=== PATIENT | female | born 2000 | race Two or more races ===

== ENCOUNTER 2024-10-24 09:57 | Day surgery (SDC) | payer OTHER, SELFPAY ==
[2024-10-24] VITALS (17 sets, daily range): BP systolic 105–135; BP diastolic 61–92; PULSE 75–101; RESP 17–98; TEMP 36.2–37.7; O2SAT 92–100; BMI 21.9
--- NOTE | 2024-10-24 10:24 | PD.EDABDPN ---
ED Abdominal Pain RME/HPI General Chief Complaint: Nausea/Vomiting/Diarrhea Stated complaint: ABDOMINAL PAIN Time seen by provider: 10/24/24 10:05 Arrival date/time: 10/24/24 09:57 RME / HPI RME / HPI narrative: 24 year old female with no stated medical history presents to the ED BIBA for evaluation of abdominal pain beginning 1 week ago and worsening today. States pain is located to the right side of abdomen mostly in the right lower quadrant, described as aching in sensation, rating as severe. Accompanied by nausea. Denies fevers, chills, sweats, chest pain, cough, shortness of breath, diarrhea, constipation, or urinary symptoms. Denies any history of similar abdominal pain or abdominal surgeries. Related Data Allergies Allergy/AdvReac Type Severity Reaction Status Date / Time No Known Allergies Allergy Verified 10/24/24 10:23 Review of Systems Review of Systems Narrative Review of Systems: Constitutional: DENIES; Fevers Eyes: DENIES; Loss of vision Head/Ear/Nose: DENIES; Loss of hearing Throat: DENIES; Dysphagia Cardiovascular: DENIES; Chest pain, dyspnea or syncope Respiratory: DENIES; Shortness of breath Gastrointestinal: SEE HPI +abd pain, nausea. DENIES; Rectal bleeding or melena. Genitourinary: DENIES; Dysuria (painful or difficult urination) Musculoskeletal: DENIES; Arthralgia (pain in a joint),; Skin: DENIES; Rash Neurological: DENIES; Loss of function or movement Psychiatric: DENIES; recent major life stressor, emotional problem, illicit drug use or abuse Endocrinology: DENIES; Weight change Hematologic/Lymphatic: DENIES; Abnormal bruising Allergic/Immunologic: DENIES; Urticaria (hives) Past Medical History Past Medical History CARDIAC: Negative Cardiac Disorders or Congestive Heart Failure RESPIRATORY: Negative Chronic Obstructive Pulmonary Disease (COPD) or Asthma GENITOURINARY: Negative Renal Disease ENDOCRINE: Negative Diabetes Mellitus Type 1 or Diabetes Mellitus Type 2 HEMATOLOGIC: Negative Sickle Cell Disease Social History SMOKING STATUS: Never smoker ED Exam Narrative Physical exam: Physical Exam: General: The vital signs were reviewed. The patient is non-toxic, in no apparent distress and appears healthy with a patent airway, no respiratory distress and has no apparent circulatory problems. Head & Scalp: Normocephalic, atraumatic. Face: Appears normal and is without lesions, deformity. Ears: Left external pinna appears normal. Right external pinna appears normal. Eyes: The sclera is anicteric. No obvious photophobia. The Left and Right Orbit/Lid/Conjunctiva appears normal without swelling, discoloration or injection. Nose: The nose is without deformity, discharge or tenderness; Throat: Appears normal. The mucous membranes are pink and moist without exudates, redness or mass seen. The tongue appears normal. Neck: The neck is supple and no apparent mass or adenopathy. Chest: The chest wall is normal in size and symmetry and has no chest wall tenderness or crepitus. The patient displays normal ventilator effort without retractions, accessory muscle use and has adequate air movement bilaterally with no wheezes and no rales. Cardiovascular: Regular rate and rhythm; No murmurs, rubs, or gallops; Gastrointestinal: The abdomen appears normal. No obvious hernias or mass. The abdomen very tender on minimal palpation of the abdomen but when you push on the right lower quadrant versus the other quadrants you get the maximum on a pain. Is soft and benign, non-distended, with no pain, no guarding and no rebound tenderness. Bowel sounds are present and normal sounding. No CVA tenderness. Genitourinary: Back/Spine: Normal inspection Extremities/Musculoskeletal/lymphatic: The bilateral upper and lower extremities are warm. There is no evidence of arterial insufficiency. There is no evidence of venous insufficiency/edema. The patient spontaneously moves bilateral upper and lower extremities with no pain and no limitation of movement. There is no apparent, injury or trauma. Skin: The skin is warm, dry and intact. No rashes. No petechia. No purpura. No abnormal bruising. The color is appropriate with no cyanosis. Mental status/Psychiatric: Mental status is appropriate for age. The patient has no apparent delusions, visual hallucinations, no apparent audible hallucinations. The patient has no apparent suicidal thoughts/ideation and no apparent homicidal thoughts/ideation. Neurological: The patient is awake, alert, interactive, cordial, cooperative and is oriented to name and situation. The patient follows commands and answers historical question with no impairment. There is no visual disturbance apparent. The pupils are equal and reactive bilaterally with normal eye movements and no diplopia The bilateral upper and lower extremities have normal strength, normal range of motion and normal functioning. The gait, station and balance not tested due to acuity Course Quality Measures none Orders Category Date Time Status CT Screening NOW Care 10/24/24 10:23 Active NPO NOW Care 10/24/24 10:22 Active Diet NPO (NOW) Diet 10/24/24 10:[address] abdomen pelvis w con Stat Exams 10/24/24 10:23 Completed Blood Culture (Lab) Stat Lab 10/24/24 10:52 Received CBC Stat Lab 10/24/24 10:50 Completed Comprehensive Metabolic Panel Stat Lab 10/24/24 10:50 Completed HCG,Qualitative Serum Stat Lab 10/24/24 10:50 Completed Lactate (Lactic Acid) Stat Lab 10/24/24 10:50 Completed Lipase Stat Lab 10/24/24 10:50 Completed Troponin I Stat Lab 10/24/24 10:50 Completed DiphenhydrAMINE INJ [Benadryl Inj] Med 10/24/24 12:44 Discontinued 25 mg IVP X1 ONE HYDROmorphone INJ [Dilaudid Inj] Med 10/24/24 11:53 Discontinued 0.5 mg IVP X1 ONE Morphine Inj Med 10/24/24 10:19 Discontinued 4 mg IVP X1 ONE Ondansetron Inj [Zofran Inj] Med 10/24/24 10:19 Discontinued 4 mg IV X1 ONE Sodium Chloride 0.9% 1000 ml [Ns] 1,000 ml Med 10/24/24 10:30 Active IV 200 mls/hr Vital Signs Vital signs: Vital Signs Temperature 98.9 F 10/24/24 10:12 Pulse Rate 95 10/24/24 10:12 Respiratory Rate 20 10/24/24 10:12 Blood Pressure 115/81 10/24/24 10:12 Pulse Oximetry (%) 100 10/24/24 10:12 Oxygen Delivery Method Room Air 10/24/24 10:12 Pulse ox is 100% on room air which is adequate. Abdominal Pain MDM MDM Narrative MDM Narrative:: Patient comes in with severe abdominal pain white count is 12.0 hemoglobin 14.5 CMP chemistry panel is entirely normal. test was negative. UA is still uncollected at 1239 hrs. Lactic acid is normal. Patient went to the scanner waiting for results and ultrasound is still pending. CT scan patient came back and has obvious acute appendicitis per the report adnexa appears normal patient's not . UA is still pending. Surgeon has been called and will evaluate. Dr. Wilkins was contacted he is going to come see the patient we will give her 1 dose of Zosyn. And will admit for acute appendicitis Patient data External records reviewed:: [facility] previous records (Per EMR review, no previous visits for review. ) and EMS form Clinical information provided by:: patient and EMS Social determinants that could affect healthcare access:: none Patient has the following chronic illnesses:: None How is presenting disease/condition affected by chronic disease/condition?: no chronic disease Evaluation data The following diagnostics were reviewed and interpreted by me:: lab results and radiology exam(s) Lab and/or radiology exams considered but not ordered:: None Interpretation Summary: Ordering Physician: Chino Laura MD Date of Service: 10/24/24 Procedure(s): CT abdomen pelvis w con Accession Number(s): [id number] cc: Chino Laura MD; Kevin Cherry MD; NO PRIMARY/FAMILY,PHYSICIAN~ Examination: CT abdomen with intravenous contrast CT pelvis with intravenous contrast 2-D coronal reconstructions 2-D sagittal reconstructions Date and time of exam:October 16, 2024 1233 hrs. Indications: Right lower abdominal pain today. CTDI: vol (mGy) 5.04 DLP: (mGycm) 253 Technique: Multiple axial sections of the abdomen and pelvis have been obtained. 64 slice high-resolution scanner used. 3 mm axial sections have been obtained, post intravenous injection 60 cc [id number] 2-D sagittal, coronal reconstructions obtained. Low dose protocols were performed. One or more of the following dose reduction techniques were used; automated exposure control, adjustment of the mA and/or KV according to patient size, use of iterative reconstruction technique. Findings: No focal liver or splenic lesions No gallstones No pancreatic or adrenal mass. No renal or ureteral calculi, no hydronephrosis Aorta normal size Fluid-filled inflamed enlarged appendix medial to the cecum, axial images 140 through 164 No pelvic abscess Contracted urinary bladder Impression: Acute appendicitis No pelvic abscess Dictated By: Kevin Cherry MD Signed By: <Electronically signed by Kevin Cherry MD in OV> 10/24/24 1302 Medications / Prescriptions Medications or Prescriptions considered but not ordered:: None Medication administrations:: Medication Administration History Sodium Chloride (Ns) 1,000 mls @ 200 mls/hr IV .Q5H GISELE Stop: 11/23/24 10:29 Last Admin: 10/24/24 10:30 Dose: 200 mls/hr Documented By: FLORESITA Discontinued Medications Diphenhydramine HCl (Diphenhydramine Inj 50 Mg/Ml Vial) 25 mg IVP X1 ONE Stop: 10/24/24 12:45 Last Admin: 10/24/24 12:46 Dose: 25 mg Documented By: FLORESITA Hydromorphone HCl (Hydromorphone Inj 2 Mg/Ml Vial) 0.5 mg IVP X1 ONE Stop: 10/24/24 11:54 Last Admin: 10/24/24 12:05 Dose: 0.5 mg Documented By: FLORESITA Morphine Sulfate (Morphine Sulf Inj 10 Mg/Ml Vial) 4 mg IVP X1 ONE Stop: 10/24/24 10:20 Last Admin: 10/24/24 10:46 Dose: 4 mg Documented By: FLORESITA Ondansetron HCl (Ondansetron Inj 2 Mg/Ml Inj 2 Ml) 4 mg IV X1 ONE; Protocol Stop: 10/24/24 10:20 Last Admin: 10/24/24 10:47 Dose: 4 mg Documented By: FLORESITA See above Consultations Consultation(s) initiated? (list below): Yes Consultation #1 (Physician, Specialty, Details): I spoke with surgeon Dr. Wilkins. Discussed patients PMHx, HPI, ED course, exam findings, labs, and radiology results. Time: 13:20 Diagnosis Differential diagnosis abdominal pain: abdominal pain, acute appendicitis, calculus of kidney, endometriosis and gastroenteritis Most likely diagnosis given after review of the tests above:: Acute appendicitis Admission Indicated Admission indicated?: indicated Admission Request Was there a request for admission?: Yes Admission Attestation Admission request attestation: Discussed case with [] from Hospitalist service regarding admission. Discussed patients ED course, exam findings, labs, and radiology results. The Hospitalist [agrees,declines] to accept the patient for admission. Disposition Plan Disposition Plan: Admit Discharge Plan Plan Patient Disposition: Admit Acute Care w/in Hospital Prescriptions/Referrals Referrals: No Primary/Family,Physician [Primary Care Provider] - In 1 week Problem List Clinical Impression: Right lower quadrant abdominal pain, Acute appendicitis Patient/Caregiver Discharge Instructions Print Language: Mosotho Stand Alone Forms: Jade Award Info., Patient Portal Info Letter
[2024-10-24] MEDS: SODIUM CHLORIDE 0.9% 1000 ML 1,000 ML 200 ML IV (10:30)
[2024-10-24] MEDS: MORPHINE SULF INJ 10 MG/ML VIAL 4 MG IVP (10:46)
[2024-10-24] MEDS: ONDANSETRON INJ 2 MG/ML INJ 2 ML 4 MG IV (10:47)
[2024-10-24 11:08] LABS: Lactate (Lactic Acid) 0.8 mMol/L (0.4-2.0)
[2024-10-24 11:14] LABS: Basophils % (Auto) 0 % (0-2.5); Eosinophils # (Auto) 0.1 Thou/mm3 (0.0-0.5); Eosinophils % (Auto) 1 % (0-10); Hematocrit 41.7 % (36.0-46.0); Hemoglobin 14.5 g/dL (12.0-16.0); Immature Granulocytes % (Auto) 0 % (0-0); Immature Granulocytes Auto 0.03 Thou/mm3 (0.00-0.00); Lymphocytes # (Auto) 1.7 Thou/mm3 (1.0-4.8); Lymphocytes % (Auto) 14 % (10-50); Mean Corpuscular HGB Conc 34.8 g/dl (31.0-37.0); Mean Corpuscular Hemoglobin 29.9 pg (25.0-35.0); Mean Corpuscular Volume 86 fL (80-100); Monocytes # (Auto) 0.6 Thou/mm3 (0.0-0.8); Monocytes % (Auto) 5 % (0-12); Neutrophils # (Auto) 9.6 Thou/mm3 (1.8-7.7); Neutrophils % (Auto) 80 % (37-80); Nucleated Red Blood Cell % 0 /100 WBC (0); Platelet Count 304 Thou/mm3 (140-440); RDW Standard Deviation 34.7 fL (36.4-46.3); Red Blood Count 4.85 Miln/mm3 (4.00-5.20)
[2024-10-24 11:29] LABS: HCG,Qualitative Serum Negative
[2024-10-24 11:34] LABS: Alanine Aminotransferase 13 U/L (10-49); Albumin/Globulin Ratio 1.6 (1.2-2.2); Alkaline Phosphatase 80 U/L (46-116); Anion Gap 7 (7-16); Aspartate Amino Transferase 20 U/L (0-34); BUN/Creatinine Ratio 13 Ratio (12-20); Bilirubin,Total 0.5 mg/dL (0.3-1.2); Blood Urea Nitrogen 9 mg/dL (9-23); Calcium 9.5 mg/dL (8.3-10.6); Calcium (Corrected) 9.5 mg/dL (8.5-10.1); Carbon Dioxide 27.3 mMol/L (20.0-31.0); Chloride 105 mMol/L (98-107); Creatinine (Component) 0.7 mg/dL (0.6-1.3); Estimated Creatinine Clearance 88.2 mL/min (>60); Globulin 3.2 gm/dL (2.3-3.5); Glucose 93 mg/dL (74-106); Lipase 42 U/L (12-53); Osmolality,Calculated 276 (275-295); Potassium 3.7 mMol/L (3.4-5.1); Sodium 139 mMol/L (136-145); Total Protein 8.2 gm/dL (5.7-8.2); Troponin I < 0.002 ng/mL (0.0-0.045); eGFR > 60 See Note
--- NOTE | 2024-10-24 11:51 | PC.NURSE ---
PATIENT STATES PAIN 10/10. INFORMED ER PROVIDER AND RECEIVED VERBAL ORDER FOR 0.5MG HYDROMORPHONE IV.
[2024-10-24] MEDS: HYDROmorphone INJ 2 MG/ML VIAL 0.5 MG IVP ×3 (12:05→16:37)
[2024-10-24] MEDS: DiphenhydrAMINE INJ 50 MG/ML VIAL 25 MG IVP (12:46)
--- NOTE | 2024-10-24 12:49 | PC.NURSE ---
Patient face and neck itch after contrast injection. ER provider notified and order for 25mg diphenhydramine IV given.
--- NOTE | 2024-10-24 14:04 | ESHP_ITS ---
[facility] Date of Admission 10/24/2024 Chief Complaint Chief Complaint: Patient is admitted with the complaints of acute appendicitis HPI History of present illness revealed that the patient was in his usual health and in the past week has had some vague abdominal pain intermittently. But last night the pain was severe and she was nauseated. She could not sleep. The pain started in the epigastric region and then moved to the right lower quadrant. Patient did not have any vomiting. She had a normal bowel movement couple of days ago but this is not having any diarrhea. Her past medical history is essentially unremarkable and she has never been admitted to the hospital.. 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 Past Medical History Past Medical History CARDIAC: Negative Cardiac Disorders or Congestive Heart Failure RESPIRATORY: Negative Chronic Obstructive Pulmonary Disease (COPD) or Asthma GENITOURINARY: Negative Renal Disease ENDOCRINE: Negative Diabetes Mellitus Type 1 or Diabetes Mellitus Type 2 HEMATOLOGIC: Negative Sickle Cell Disease Social History SMOKING STATUS: Never smoker Meds Home Medications and Allergies Allergies Allergy/AdvReac Type Severity Reaction Status Date / Time No Known Allergies Allergy Verified 10/24/24 10:23 Exam Vital Signs Temp Pulse Resp BP Pulse Ox O2 Del Method 99.5 F 98 20 123/87 H 100 Room Air 10/24/24 13:54 10/24/24 13:54 10/24/24 13:54 10/24/24 13:54 10/24/24 13:54 10/24/24 13:54 Narrative Exam Physical examination revealed a thin built female who is 5 feet tall weighing 112 pounds with BMI of 21.9. Her vital signs are normal other than tachycardia with pulse rate of 98 she did have a low-grade fever of 99.5 Routine Respiratory Exam Comments: Good breath sounds on both sides Routine Cardiovascular Exam Comments: Sinus tachycardia Routine Abdominal Exam Comments: Abdomen revealed severe tenderness that is localized in the suprapubic region.. She had a diffuse tenderness but more so in the suprapubic region and some in the right lower quadrant Routine Rectal Exam Comments: Deferred Routine Exam Comments: For Routine Extremities Exam Comments: Normal limits Results Results: Laboratory Laboratory Narrative: Patient's laboratory workup revealed a WBC of 12,000 with a shift to the left Results: Imaging Imaging narrative: CT scan of the abdomen showed acute appendicitis without any evidence of perforation or abscess Assessment & Plan Additional Assessment Additional comments: Impression: Acute appendicitis Plan Plan: I advised the patient to undergo laparoscopic or open appendectomy. The procedure was explained to her in detail including the potential complications due to the bowel bleeding and need for open surgery etc. were discussed with the patient. She is agreeable. Patient has been started on Zosyn and she will be taken to the operating room as soon as 1 is available Quality Measures Quality Measures none
[2024-10-24] MEDS: PIPER/TAZO INJ 3.375 GM in SODIUM CHLORIDE 0.9% (Popper) 50 ML IV ×2 (14:10→21:55)
--- NOTE | 2024-10-24 14:12 | PC.NURSE ---
Patient requested pain medication. Received verbal order from Dr. Laura for 0.5 mg Hydromorphone IV.
--- NOTE | 2024-10-24 15:52 | PC.NURSE ---
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
[2024-10-24] MEDS: SODIUM CHLORIDE 0.9% 1000 ML 1,000 ML 100 ML IV (16:38)
--- NOTE | 2024-10-24 17:33 | PC.NURSE ---
report received over phone from Nurse Fuller from ER. Darwin Fuller Pt. is already headed to the surgery. We will wait for pt.to back on the floor after surgery and start the care.
--- NOTE | 2024-10-24 17:34 | PC.NURSE ---
Report given to Dotty MCNEILL at Med Surg
--- NOTE | 2024-10-24 18:53 | PD.SUROPNT ---
Date of Procedure 10/24/24 Pre Op Diagnosis Acute appendicitis Post Op Diagnosis Same Procedure Laparoscopic appendectomy Findings Patient was found to have inflamed appendix going towards the back of the cecum Procedure Description After the patient was placed in supine position and anesthesia was administered with endotracheal intubation. Abdomen was prepped with ChloraPrep solution and draped in a sterile manner. A timeout was performed and a small incision was made just above the umbilicus. Fascia was cleaned and Veress needle was inserted to obtain a pneumoperitoneum up to 15 mmHg. Then I introduced a 12 mm trocar at the umbilicus with a 10 mm camera. Patient was kept in Trendelenburg position with the left lateral tilt. Intra-abdominal organs were visualized and this showed omentum covering the right lower quadrant. A 5 mm trocar was inserted in the right lower quadrant under direct vision and using a laparoscopic José I move the omentum and identified the appendix. Appendix was inflamed in its entire length and was located medial to the cecum. Another 5 mm trocar was inserted in the left lower quadrant under direct vision and using Harmonic hugo I dissected the mesoappendix cauterizing the vessels. When the base of the appendix was reached this was stapled using an Endo cutter 35 power chhaya. Then the appendix was retrieved through the Endopouch through the umbilical port. Patient was found to have a small bleeding on the surface of the stomach which was treated with Surgicel powder and I made sure that there is no bleeding or perforation. Then after irrigating and cleaning the pelvis and the right lower quadrant all the trocars were pulled out and the pneumoperitoneum was let out. Fascia was closed with interrupted 0 Vicryl and then I injected half percent Marcaine with epinephrine for analgesia. Skin was then closed with interrupted 4-0 nylon stitches and a Tegaderm dressing was applied. Patient tolerated the procedure well and returned to recovery room in stable condition. Anesthesia GETA Pathology / specimen Other (Inflamed appendix) Estimated Blood Loss 20 Surgeon Elio De Jesus MD Surgical Staff Operation Date: 10/24/24 17:00 Case Staff Anesthesiologist: Vinay Stewart RN First Assistant: Emperatriz Sage
--- NOTE | 2024-10-24 18:56 | SUR.PHASEI ---
Arrived to recovery [facility] via [facility]. Resport received from Terrence MCNEILL and Dr. Stewart. Resting with eyes closed, oral airway in place. No s/o distress or discomfort. x3 small dressings to lap sites C/D/I.
--- NOTE | 2024-10-24 19:10 | SUR.PHASEI ---
Oral airway removed, eyes open. No s/o distress or discomfort. Responding appropriately.
--- NOTE | 2024-10-24 19:30 | SUR.PHASEI ---
C/O abd. pain and feeling anxious. States she wants her mom and wants to leave the hospital. States she doesn't know why she's here and that she didn't agree to surgery. Explained to her that anesthesia may be affecting her memory. Mom brought to bedside. Explained to her why she had surgery and that once anesthesia wears off she will remember more details.
--- NOTE | 2024-10-24 19:32 | SUR.PHASEI ---
Dr. Stewart at bedside. Order for Dilauded received. States we can start pain control with Ofirmev and Fentanyl and may proceed with Dilauded PRN after that.
[2024-10-24] MEDS: ACETAMINOPHEN IVPB 1,000 MG/100 ML VIAL 250 MG IV (19:38)
[2024-10-24] MEDS: fentaNYL CIT INJ 50 mCg/ML AMP 2ML 25 MCG IV (19:39)
[2024-10-24] MEDS: HYDROmorphone INJ 2 MG/ML VIAL 0.5 MG IV (19:57)
[2024-10-24] MEDS: MORPHINE SULF INJ 10 MG/ML VIAL 3 MG IVP (20:52)
[2024-10-25] VITALS (9 sets, daily range): BP systolic 88–110; BP diastolic 51–68; PULSE 68–93; RESP 15–21; TEMP 36–36.5; O2SAT 96–99
[2024-10-25] MEDS: ACETAMINOPHEN IVPB 1,000 MG/100 ML VIAL 250 MG IV ×2 (00:23→05:14)
[2024-10-25] MEDS: SODIUM CHLORIDE 0.9% 1000 ML 1,000 ML 100 ML IV (00:23)
[2024-10-25] MEDS: MORPHINE SULF INJ 10 MG/ML VIAL 3 MG IVP ×2 (01:41→16:22)
[2024-10-25] MEDS: PIPER/TAZO INJ 3.375 GM in SODIUM CHLORIDE 0.9% (Popper) 50 ML IV ×2 (05:05→13:43)
[2024-10-25 05:20] LABS: Basophils % (Auto) 0 % (0-2.5); Eosinophils % (Auto) 0 % (0-10); Hematocrit 32.4 % (36.0-46.0); Hemoglobin 11.1 g/dL (12.0-16.0); Immature Granulocytes % (Auto) 0 % (0-0); Immature Granulocytes Auto 0.05 Thou/mm3 (0.00-0.00); Lymphocytes # (Auto) 0.7 Thou/mm3 (1.0-4.8); Lymphocytes % (Auto) 5 % (10-50); Mean Corpuscular HGB Conc 34.3 g/dl (31.0-37.0); Mean Corpuscular Hemoglobin 29.3 pg (25.0-35.0); Mean Corpuscular Volume 86 fL (80-100); Monocytes # (Auto) 0.7 Thou/mm3 (0.0-0.8); Monocytes % (Auto) 5 % (0-12); Neutrophils # (Auto) 14.9 Thou/mm3 (1.8-7.7); Neutrophils % (Auto) 91 % (37-80); Nucleated Red Blood Cell % 0 /100 WBC (0); Platelet Count 231 Thou/mm3 (140-440); RDW Standard Deviation 35.2 fL (36.4-46.3); Red Blood Count 3.79 Miln/mm3 (4.00-5.20); White Blood Count 16.4 Thou/mm3 (3.6-11.0)
--- NOTE | 2024-10-25 07:35 | ESPR_ITS ---
Documentation for date of: 10/25/24 Subjective Subjective Brief History: History of present illness revealed that the patient was in his usual health and in the past week has had some vague abdominal pain intermittently. But last night the pain was severe and she was nauseated. She could not sleep. The pain started in the epigastric region and then moved to the right lower quadrant. Patient did not have any vomiting. She had a normal bowel movement couple of days ago but this is not having any diarrhea. Her past medical history is essentially unremarkable and she has never been admitted to the hospital.. 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 She is passing flatus Exam Vital Signs Temp Pulse Resp BP Pulse Ox O2 Del Method O2 Flow Rate 97.1 F 72 21 H 110/68 98 Nasal Cannula 2 10/25/24 04:00 10/25/24 07:23 10/25/24 07:23 10/25/24 05:00 10/25/24 07:23 10/25/24 04:00 10/25/24 07:23 Her vital signs are normal Routine Abdominal Exam Comments: Abdominal examination is negative Results Results: Laboratory Laboratory Narrative: WBC is elevated probably secondary to surgical stress Assessment & Plan Assessment Additional comments: Impression: Satisfactory recovery so far following appendectomy Plan Plan: We shall discharge the patient if she is tolerating diet Procedures Procedures Laparoscopic appendectomy
--- NOTE | 2024-10-25 10:45 | PC.PT ---
PT eval only. Patient is young and healthy besides being s/p appendectomy on 10/24/24. Patient is xI with bed mobility, transfers, and ambulation with no DME. Patient does not require skilled PT intervention at this time.
--- NOTE | 2024-10-25 16:36 | PC.NURSE ---
Notified MD that patient's pharmacy is not open on the weekend. Per MD, pt is instructed to take motrin over the counter for pain until prescription can be obtained on Sunday.
--- NOTE | 2024-10-25 17:36 | PC.NURSE ---
called and said that pt. can take motrin OTC for pain. Will give instructions to the pt. upon discharge.
== END 2024-10-25 18:33 | disposition home or self-care (01) ==
LOC: SERX 14:04 → SERHOLD 17:03 → S3SX 10-25 12:30 → S2EX 10-27 08:30 → S3SX 10-27 08:31
PROVIDERS: Emergency Provider Emergency Medicine; Referring Provider Surgery; Visit Provider Surgery
PROC: 0DTJ4ZZ Resection of Appendix, Percutaneous Endoscopic Approach (ICD-10-PCS; CPT 44970; principal; 2024-10-24 17:00)
DX: K35.30 Acute appendicitis with localized peritonitis, without perforation or gangrene (principal)
CPT/HCPCS: 47562; 36415; 74177; 80053; 81001; 81025; 83605; 83690; 84484; 84703; 85025; 87040; 94664; 96361; 96365; 96375; 97161; A4217; A4649; C1713; G0378; J0131; J1100; J1200; J1885; J2250; J2270; J2405; J2543; J2704; J3010; J3490; J7030; J7050; Q9967